=== PATIENT | female | born 1990 | race Caucasian/White ===

== ENCOUNTER 2018-04-16 05:31 | Inpatient (IN) | payer MEDICAID ==
[~2018-04-16] VITALS: Ht 162.6 cm; Wt 73.5 kg
[2018-04-16] MEDS ORDERED: CARBOPROST TROMETHAMINE 250 MCG/ML AMPUL IM PRN (07:15)
[2018-04-16] MEDS ORDERED: DEXT 5%/LR + PITOCIN 20UNITS/L 1,000 ML IV SCH ×2 (07:15→13:36)
[2018-04-16] MEDS ORDERED: NALOXONE HCL 0.4 MG/ML 1ML VIAL IM PRN (07:15)
[2018-04-16] MEDS ORDERED: METHYLERGONOVINE MALEATE 0.2 MG/ML IM PRN (07:15)
[2018-04-16] MEDS ORDERED: LACTATED RINGERS 1,000 ML IV SCH (07:15)
[2018-04-16 08:15] LABS: PARTIAL THROMBOPLASTIN TIME 30.3 sec (23.4-31.0)
[2018-04-16 08:19] LABS: BASOPHILS % 0.2 % (0.0-2.0); EOSINOPHILS % 0.9 % (0.0-5.0); HEMATOCRIT. 38.1 % (36.0-48.0); HEMOGLOBIN. 12.8 g/dL (12.0-16.0); LYMPHOCYTES % 24.4 % (20.0-50.0); MEAN CORPUSCULAR HEMOGLOBIN 30.7 pg (28.0-32.0); MEAN PLATELET VOLUME 8.6 fl (7.4-10.4); MONOCYTES % 8.6 % (2.0-8.0); NEUTROPHILS % 65.9 % (40.0-76.0); PLATELET 239 x1000/uL (130-400); RED BLOOD CELL COUNT 4.18 mill/uL (4.2-5.4); RED CELL DISTRIBUTION WIDTH 13.3 % (11.6-14.6)
[2018-04-16 09:11] LABS: CLARITY URINE CLOUDY (CLEAR); COLOR URINE YELLOW (YELLOW); KETONES URINE NEGATIVE (NEGATIVE); LEUKOCYTE ESTERASE URINE NEGATIVE (NEGATIVE); NITRITE URINE NEGATIVE (NEGATIVE); OCCULT BLOOD URINE NEGATIVE (NEGATIVE); PH URINE 6.5 (4.5-8.0); PROTEIN URINE NEGATIVE (NEGATIVE)
[2018-04-16 09:28] LABS: *BENZODIAZEPINES SCREEN URINE NEGATIVE (NEGATIVE)
[2018-04-16 09:29] LABS: *AMPHETAMINES SCREEN URINE NEGATIVE (NEGATIVE); *COCAINE SCREEN URINE NEGATIVE (NEGATIVE); CANNABINOID URINE SCREEN NEGATIVE (NEGATIVE); METHADONE URINE SCREEN NEGATIVE (NEGATIVE); OPIATES URINE SCREEN NEGATIVE (NEGATIVE); PHENCYCLIDINE URINE SCREEN NEGATIVE (NEGATIVE)
[2018-04-16 09:43] LABS: *BARBITURATES SCREEN URINE NEGATIVE (NEGATIVE)
[2018-04-16] MEDS ORDERED: MORPHINE SULFATE/PF 1MG/ML 10ML AMP ONE (12:02)
[2018-04-16] MEDS ORDERED: BUPIVACAINE HCL/DEXTROSE/PF 0.75% 2ML AMP INJ ONE (12:03)
[2018-04-16] MEDS ORDERED: OXYTOCIN 10 UNITS/ML 1ML ONE (12:43)
[2018-04-16] MEDS ORDERED: HYDROMORPHONE HCL/PF 2MG/ML CPJ IV PRN (12:45)
[2018-04-16] MEDS ORDERED: MEPERIDINE HCL/PF 25MG/ML CPJ IV PRN (12:45)
[2018-04-16] MEDS ORDERED: ONDANSETRON HCL 4MG/2ML INJ IV PRN ×2 (12:45→13:45)
[2018-04-16] MEDS ORDERED: LABETALOL 5MG/ML SYR 20 MG/4 ML SYRINGE IV PRN (12:45)
[2018-04-16 13:06] LABS: HEPATITIS B SURFACE ANTIGEN NEGATIVE
[2018-04-16] MEDS ORDERED: LANOLIN OINT 0.25 GM TUBE TOP PRN (13:45)
[2018-04-16] MEDS ORDERED: RHO(D) IMMUNE GLOBULIN 300 MCG/SYR IM PRN (13:45)
[2018-04-16] MEDS ORDERED: IBUPROFEN 400MG TABLET PO PRN (13:45)
[2018-04-16] MEDS ORDERED: KETOROLAC 30MG/ML VIAL IV NR (16:09)
[2018-04-16 16:45] VITALS: BP 108/56
[2018-04-16 17:15] VITALS: BP 106/55
[2018-04-16 20:00] VITALS: BP_SYST 93; BP_SYST 95; BP_DIAS 52; BP_DIAS 57
[2018-04-16] MEDS ORDERED: DOCUSATE SODIUM 100MG CAPSULE PO SCH (21:00)
[2018-04-17] VITALS: BP 93/52
[2018-04-17 04:49] VITALS: BP 93/46
[2018-04-17 07:17] LABS: BASOPHILS % 0.2 % (0.0-2.0); EOSINOPHILS % 0.6 % (0.0-5.0); HEMATOCRIT. 32.7 % (36.0-48.0); LYMPHOCYTES % 14.8 % (20.0-50.0); MEAN CORPUSCULAR HEMOGLOBIN 30.9 pg (28.0-32.0); MEAN CORPUSCULAR VOLUME 91.8 fL (81.0-99.0); MEAN PLATELET VOLUME 8.5 fl (7.4-10.4); MONOCYTES % 8.6 % (2.0-8.0); NEUTROPHILS % 75.8 % (40.0-76.0); PLATELET 188 x1000/uL (130-400); RED BLOOD CELL COUNT 3.56 mill/uL (4.2-5.4); RED CELL DISTRIBUTION WIDTH 13.3 % (11.6-14.6)
[2018-04-17 08:30] VITALS: BP 101/57
[2018-04-17] MEDS: IBUPROFEN 800MG TABLET PO PRN ×2 (09:00→16:11)
[2018-04-17 17:41] VITALS: BP 96/60
[2018-04-17 20:00] VITALS: BP 95/56
[2018-04-18 00:01] VITALS: BP 98/45
[2018-04-18] MEDS: IBUPROFEN 800MG TABLET PO PRN ×2 (01:13→18:01)
[2018-04-18 04:00] VITALS: BP 98/44
[2018-04-18] MEDS: PRENATAL VIT/FE FUMARATE/FA TABLET PO SCH (08:20)
[2018-04-18 08:21] VITALS: BP 102/53
[2018-04-18 15:30] VITALS: BP 106/60
[2018-04-18 20:00] VITALS: BP 101/52
[2018-04-19] MEDS: IBUPROFEN 800MG TABLET PO PRN (03:21)
[2018-04-19 04:00] VITALS: BP 112/68
[2018-04-19 07:32] VITALS: BP 99/63
[2018-04-19] MEDS: PRENATAL VIT/FE FUMARATE/FA TABLET PO SCH (08:34)
[2018-04-19] MEDS ORDERED: ACETAMINOPHEN WITH CODEINE 300/30MG TABLET PO PRN (09:15)
[2018-04-19] MEDS ORDERED: LACTATED RINGERS 1,000 ML IV ONE (09:30)
[2018-04-19] MEDS ORDERED: THEOPHYLLINE ANHYDROUS 80 MG/15 ML 120ML PO SCH (12:00)
[2018-04-19] MEDS ORDERED: TETANUS, DIPHTHERIA, PERTUSSIS VAC/PF 0.5ML (>7YR OLD) IM ONE (12:30)
== END 2018-04-19 16:45 | disposition home or self-care (01) | DRG 540 ==
LOC: 8 EST LDRP 05:31 → OBSVTOIN 12:32 → 8EST 16:59
PROVIDERS: ADMIT Obstetrics & Gynecology; ATTEND Obstetrics & Gynecology
PROC: 10D00Z1 Extraction of Products of Conception, Low, Open Approach (ICD-10-PCS; principal; 2018-04-16)
PROC: 0UB70ZZ Excision of Bilateral Fallopian Tubes, Open Approach (ICD-10-PCS; 2018-04-16)
DX: O34.211 Maternal care for low transverse scar from previous cesarean delivery (principal); O69.81X0 Labor and delivery complicated by cord around neck, without compression, not applicable or unspecified; Z30.2 Encounter for sterilization; Z3A.39 39 weeks gestation of pregnancy; Z37.0 Single live birth
CPT/HCPCS: 36415; 80305; 86592; 86703; 86762; 86850; 86900; 86920; 87340; 88302; 88307; 90715; 99281; G0378; J1885; J2274; J2405; J2590; J3490; J7120

== ENCOUNTER 2018-04-20 21:41 | Emergency (ER) | payer MEDICAID ==
[~2018-04-20] VITALS: Ht 157.5 cm; Wt 68.5 kg
[2018-04-20] MEDS ORDERED: SODIUM CHLORIDE 0.9% 1,000 ML IV ONE (22:40)
[2018-04-20 22:47] LABS: CLARITY URINE CLOUDY (CLEAR); COLOR URINE YELLOW (YELLOW); KETONES URINE NEGATIVE (NEGATIVE); LEUKOCYTE ESTERASE URINE NEGATIVE (NEGATIVE); NITRITE URINE NEGATIVE (NEGATIVE); OCCULT BLOOD URINE 3+ (NEGATIVE); PH URINE 7.5 (4.5-8.0); PROTEIN URINE NEGATIVE (NEGATIVE); SPECIFIC GRAVITY URINE 1.016 (1.005-1.030)
[2018-04-20] MEDS ORDERED: ACETAMINOPHEN 325MG TABLET PO ONE (23:15)
[2018-04-20 23:43] LABS: BASOPHILS % 0.2 % (0.0-2.0); EOSINOPHILS % 2.6 % (0.0-5.0); HEMATOCRIT. 37.5 % (36.0-48.0); HEMOGLOBIN. 12.5 g/dL (12.0-16.0); LYMPHOCYTES % 28.9 % (20.0-50.0); MEAN CORPUSCULAR HEMOGLOBIN 30.7 pg (28.0-32.0); MEAN CORPUSCULAR VOLUME 91.7 fL (81.0-99.0); MEAN PLATELET VOLUME 7.7 fl (7.4-10.4); MONOCYTES % 7.6 % (2.0-8.0); NEUTROPHILS % 60.7 % (40.0-76.0); PLATELET 323 x1000/uL (130-400); RED BLOOD CELL COUNT 4.09 mill/uL (4.2-5.4); RED CELL DISTRIBUTION WIDTH 13.4 % (11.6-14.6)
[2018-04-20 23:46] LABS: CHLORIDE 105 mEq/L (98-107)
[2018-04-21 00:10] VITALS: BP 102/50
== END 2018-04-21 00:45 | disposition home or self-care (01) ==
LOC: ER 21:41
DX: G97.1 Other reaction to spinal and lumbar puncture (principal); R51 Headache; Z98.890 Other specified postprocedural states
CPT/HCPCS: 36415; 80053; 81003; 81025; 85025; 99283; J7030